=== PATIENT | male | born 1960 | race Caucasian/White ===

== ENCOUNTER → 2019-11-05 14:45 | Outpatient (CLI) | payer BC, SELFPAY ==
--- NOTE | ~2019-11-05 | CT_ITS ---
EXAMINATION: CT sinus wo con DATE: 11/05/2019 15:00 INDICATION: Chronic sinusitis. TECHNIQUE: Computed tomography (CT) of the paranasal sinuses was performed without intravenous contra st. The dose-length product was 283.55 mGy-cm. Automated exposure control and iterative reconstructio n technique were employed. COMPARISON: None FINDINGS: There are changes of surgical resection of the inferior turbinates. The ostiomeatal units a re patent. Minimal mucosal thickening adjacent to the right ostiomeatal unit. Small mucous retention cyst left maxillary sinus. No air-fluid levels. No significant mucoperiosteal reaction. Leftward nasa l septal deviation. Mastoid air cells are pneumatized. IMPRESSION: 1. Mild maxillary sinus disease. Reviewed, dictated and finalized at location A. ER MACHINE
== END ==
PROVIDERS: PCP Family Medicine; Visit Provider Otolaryngology
DX: J32.0 Chronic maxillary sinusitis (principal)
CPT/HCPCS: 70486

== ENCOUNTER 2020-12-10 12:24 | Outpatient (CLI) | payer BC, SELFPAY | END 2020-12-10 12:25 | disposition home or self-care (01) | LOC: ANHAUDIO 12:25 | PROVIDERS: PCP Physician Assistant; Referring Provider Otolaryngology; Visit Provider Otolaryngology | DX: H93.12 Tinnitus, left ear (principal) | CPT/HCPCS: 92557; 92567 ==

== ENCOUNTER 2021-12-28 00:19 | Day surgery (SDC) | payer BC, SELFPAY ==
[2021-12-15 15:01] VITALS: BMI 29.3
--- NOTE | 2021-12-15 15:15 | PC.NURSE ---
Report to the Outpatient Waiting Room, entrance under the green pavilion located off [facility], at time 0630 on date 12/28/21. OR Time: 0830. - You and your visitor will be asked a series of questions to screen for COVID 19 for your protection. - A mask is required within the hospital. One visitor will be allowed to accompany the patient into the hospital. Patients visitor will be instructed to remain with patient at all times or leave the building. We will allow the visitor to come back to the postoperative area when patient is ready. Preoperative COVID Testing Requirements: No COVID Test needed if: (proof is required; if not received patient will have Rapid Test prior to entry) - Patient has received COVID Vaccine at least 14 days prior to procedure date or - Patient has positive COVID test result within last 90 days of surgery date. COVID Test needed if above criteria is not met Patients may have clear liquids (water, carbonated beverages, clear teas, apple juice) until 3 hours prior to surgery with a maximum of 20 ounces. - No food from midnight until time of surgery Take the following medications with a SIP of water the morning of surgery: METOPROLOL Medications to discontinue per physician: VITAMINS/SUPPLEMENTS Date to take last dose: 12/24/21 Please no make-up, nail gambian, hairspray, perfume, deodorant, or body powder the day of surgery. No jewelry (including any body piercings) or valuables the day of surgery, leave them at home. Please take a shower or bath the night before, or the morning of, surgery with an antibacterial soap. Wear comfortable, loose fitting clothing. HIBICLENS SHOWER - Jewelry must be removed prior to entering the operating room. Rings and piercings that are not removed may be cut off. - The hospital will not accept responsibility for valuables. - Please leave all valuables, including medications, at home the day of surgery. If you are going home after surgery, a licensed entry driver operator must drive you home. - NO public transportation without another adult. - We recommend that an adult stay with you for 24 hours following discharge. - We also recommend that you do not drive, make important decision, drink alcoholic beverages, or take any drugs that were not prescribed by your health care provider for at least 24 hours after your discharge time. Follow any additional instructions given to you from your surgeon. Telephone instructions given to MAGED CHERY and asked if any additional questions and then verbalized understanding. Patient advised to call surgeon office or pre surgery nurse liaison [phone] if any additional questions.
[2021-12-28] MEDS: ACETAMINOPHEN 500 MG TABLET 1000 MG PO (06:43)
[2021-12-28 06:47] VITALS: BP 148/83; PULSE 77; RESP 16; TEMP 36.6; O2SAT 99
--- NOTE | 2021-12-28 07:03 | WPDANESEPPF ---
Anes - Initial Pre Proc Eval Procedure: Operation Date: 12/28/21 08:30 Proposed Procedures p Repair Periumbilical Incisional Hernia with Mesh - Bradley Lopez MD Date/Time: 12/28/21 07:03 Surgeon: Bradley Lopez MD Pre Op Diagnosis: Incisional Hernia Patient Data Age: 60 Gender: M Height: 1.91 m Weight: 108 kg Allergies Allergy/AdvReac Type Severity Reaction Status Date / Time codeine Allergy Unknown Headache Verified 12/28/21 06:39 diclofenac AdvReac Severe Swelling Verified 12/28/21 06:39 strawberry AdvReac Severe Dyspnea / Verified 12/28/21 06:39 SOB NSAIDS (Non-Steroidal AdvReac Swelling Verified 12/28/21 06:39 Anti-Inflamma Home Medications Medication Instructions Recorded Confirmed Type multivitamin 1 tablet PO DAILY 08/15/19 12/28/21 History testosterone cypionate 200 mg/mL 200 mg IM MONTHLY #3 ml 08/02/21 12/28/21 Rx intramuscular oil metoprolol succinate 50 mg 75 mg PO DAILY #135 tablet 11/27/21 12/28/21 Rx tablet,extended release 24 hr Patient hx anesthesia problems: none Family hx anesthesia problems: none Results Review: All pre-operative results and documents have been reviewed as part of the pre-operative evaluation. [facility] Past Medical History Medical History (Updated 12/12/21 @ 11:17 by Lindsey Shipley) Dyspnea on exertion Hypertension Hypogonadism Hypogonadism in male SVT (supraventricular tachycardia) Surgical History Surgical History H/O hernia repair History of carpal tunnel release Family History Family History Mother Family history of congestive heart failure Diabetes mellitus Hypertension Other Family history of cardiovascular disease Social History Social History Smoking packs per day: 2 Smoking cigarettes per day: 40.0 Years smoked: 25 Smoking pack-years: 50.00 Smoking status: Former smoker Tobacco type: cigarettes Second hand tobacco smoke exposure: No Smoking end date: 10/08/01 Alcohol intake: current Drinks per week: 8 Substance use: never Substance use type: does not use Living arrangements: alone Gender identity (if verbalized by the patient): Male Spiritual care concerns: No Anes - Eval Final PreProcedure Day of Procedure 12/28/21 07:03 Patient weight: overweight Heart: regular rate and rhythm Lungs: clear to auscultation and normal air movement Airway: Mallampati scale class 1 Neurological: alert and oriented Last oral intake: >/= 8 hours ASA classification: III Emergent: no Anesthetic plan: proceed Anesthesia type and monitoring: general GIVS and standard monitoring Results Review: All pre-operative results and documents have been reviewed as part of the pre-operative evaluation. Informed Consent: The patient's anesthetic plan and its attendant risks and benefits were discussed with the patient/family/POA. Questions were solicited and answers provided to the satisfaction of the patient/family/POA.
[2021-12-28] MEDS: LACTATED RINGERS 1,000 ML 30 ML IV CONT (07:27)
--- NOTE | 2021-12-28 08:15 | WPDHPUPDATE1 ---
History and Physical Update Update Date/Time: 12/28/21 08:15 History and Physical has been reviewed, including an updated exam of the patient. There are NO changes in the patient's condition. Risks, benefits, and alternatives have been discussed and questions answered. Patient agrees to proceed with procedure.
[2021-12-28] MEDS: ceFAZolin 2 GM/D5W 50 ML 2 GM/50 ML BAG IVPB (08:36)
[2021-12-28] MEDS: BUPIVACAINE/EPINEPHRINE 0.25% 10 ML VIAL 30 ML INFILTRATE (09:07)
[2021-12-28 09:23] VITALS: BP 109/60; PULSE 85; RESP 14; TEMP 36.9; O2SAT 97
--- NOTE | 2021-12-28 09:32 | W.PM.PROC2 ---
Procedure Note - Detailed Date of Procedure 12/28/21 Pre-op Diagnosis Incisional Hernia Post-op Diagnosis Same Procedure Performed Repair incisional hernia with 4.[address] underlay hernia mesh Surgeon Bradley Lopez MD Anesthesia MAC and Local (0.25% Marcaine with epinephrine) Indications Patient is a 60-year-old man who developed a bulge just above the umbilicus. He had had a previous laparoscopic inguinal hernia repair in this was a trocar site. He is taken to surgery now for repair of this incisional hernia. Findings Showed a small 1 cm defect. Description of Procedure The patient was taken to surgery and placed in a supine position. IV sedation was administered. The abdomen is prepped and draped. The proposed incision was marked on the skin directly overlying the previous incision scar. Local was infiltrated in the area of the anticipated incision and in the subcutaneous. Incision was made dissection was carried down to the hernia. I dissected the hernia sac from the subcutaneous and from the overlying umbilical skin. We dissected circumferentially around the herniated contents down to the fascia. I then infiltrated additional local into the fascia all around the neck of the hernia. Local was also infiltrated into the neck of the hernia. I then excised the hernia sac and the herniated contents with the cautery. This material was discarded. I was able place a finger in the defect. No other hernias were noted. I placed a curved clamp in the defect and checked for any other potential defects in the area. None were seen. I then infiltrated additional local all around the area of the hernia defect. The 4.2 cm Ventralex patch was chosen and placed in the defect. It was positioned symmetrically. Cranial and caudal transfascial sutures of 0 Ethibond were then placed. Each of these was placed in such a fashion as it would advance the edges of the hernia defect towards 1 another. Once the sutures were tied, they did have the desired effect. I then closed the hernia defect with [id number] mattress suture of 0 Ethibond. This also incorporated a bit of the mesh. The repair looked good. The skin was sutured to the fascia with interrupted 3-0 Vicryl suture. Incision was closed with interrupted 3-0 and 4-0 Vicryl subcuticular suture. Finally a running 4-0 Monocryl skin suture was placed in subcuticular fashion. The wound was dressed with Exofin surgical adhesive. The patient was awakened and taken to recovery in good condition. Sponge and needle counts were correct x2. Implants 4.[address] hernia patch Estimated Blood Loss -5 Drains No Packing No Pathology None sent Complications No immediate complications Condition Stable Disposition Same day
[2021-12-28 09:53] VITALS: BP 140/82; PULSE 63; RESP 14; O2SAT 99
[2021-12-28 10:00] VITALS: BP 152/91; PULSE 63; RESP 14; O2SAT 99
--- NOTE | 2021-12-28 10:21 | SUR.PHASEII ---
pt said he spoke with dr schmitt about Percocet and his allergy and said it should be ok for him to take if needed.
== END 2021-12-28 10:22 | disposition home or self-care (01) ==
PROVIDERS: PCP Family Medicine; Visit Provider Surgery
PROC: (CPT 49560; principal; 2021-12-28 08:30)
DX: K43.2 Incisional hernia without obstruction or gangrene (principal); I10 Essential (primary) hypertension; I47.1 Supraventricular tachycardia; E29.1 Testicular hypofunction; Z79.890 Hormone replacement therapy; Z87.891 Personal history of nicotine dependence
CPT/HCPCS: 49560; 49568; A9270; C1781; J0690; J2250; J2704; J3010; J7120

== ENCOUNTER 2023-05-09 13:11 | Emergency (ER) | payer BC, SELFPAY ==
--- NOTE | ~2023-05-09 | XR_ITS ---
EXAMINATION: XR knee RT min 4V DATE: 05/09/2023 13:38 INDICATION: Right knee pain. TECHNIQUE: 4 views of right knee were obtained. COMPARISON: None. FINDINGS: Bone alignment is normal. No fracture. There is moderate osteoarthritis of medial compartme nt and mild osteoarthritis of lateral and patellofemoral compartments. No knee joint effusion. IMPRESSION: 1. Moderate right knee osteoarthritis. Reviewed, dictated and finalized at location B.
--- NOTE | 2023-05-09 13:13 | ED.EXTPRO ---
HPI - Extremity Problem General Chief complaint: Extremity Problem,Nontraumatic Stated complaint: Rt Knee Pain Time Seen by Provider: 05/09/23 13:13 Source: patient Mode of arrival: ambulatory Limitations: no limitations History of Present Illness HPI Narrative: Roc is a 62-year-old male patient presenting to the clinic today with complaints of right knee pain time 2 days. 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 Is having pain to the right medial and posterior knee. No known injury. Pain is worse with full flexion of the knee. Related Data Home Medications Medication Instructions Recorded Confirmed multivitamin (Daily Multi-Vitamin 1 tablet PO DAILY 08/15/19 05/09/23 tablet) Allergies Allergy/AdvReac Type Severity Reaction Status Date / Time strawberry AdvReac Severe Dyspnea / Verified 05/09/23 13:12 SOB codeine AdvReac Mild Headache Verified 05/09/23 13:12 diclofenac AdvReac Mild Swelling Verified 05/09/23 13:12 NSAIDS (Non-Steroidal AdvReac Mild Swelling Verified 05/09/23 13:12 Anti-Inflamma Review of Systems Review of Systems: Pertinent positives per HPI. Patient denies any fever, chills, rash, headache, visual changes, dizziness, cough, runny nose, sore throat, shortness of breath, chest pain, palpitations, nausea, vomiting, diarrhea, constipation, abdominal pain, or any urinary issues. [facility] Past Medical History Medical History Dyspnea on exertion Hypertension Hypogonadism Hypogonadism in male Normal cardiac stress test 2009 Surgical History Surgical History H/O hernia repair History of carpal tunnel release History of incisional hernia repair SHIMON-UMB INCISIONAL HERNIA REPAIR W MESH 12/28/21 Family History Family History Mother Family history of congestive heart failure Diabetes mellitus Hypertension Other Family history of cardiovascular disease Social History Social History Smoking packs per day: 2 Smoking cigarettes per day: 40.0 Years smoked: 25 Smoking pack-years: 50.00 Smoking status: Former smoker Tobacco type: cigarettes Second hand tobacco smoke exposure: No Smoking end date: 10/08/01 Alcohol intake: current Drinks per week: 8 Substance use: never Substance use type: does not use Living arrangements: alone Occupation/Education: occupation Gender identity (if verbalized by the patient): Male Spiritual care concerns: No Comments At the time of my signature, I reviewed and agree with the nursing past medical, surgical, social, and family history. There is no relevant family history pertinent to the patient complaint. Exam Narrative: General: Well-developed, well nourished, in no apparent distress Head: Normocephalic, atraumatic. Cardio: Regular rate and rhythm, s1 and s2 normal, no murmur appreciated. Resp: Clear to auscultation bilaterally, no rhonchi, rales, wheezing or rubs. Musculoskeletal: No deformity, no swelling or bruising noted, no palpable mass, tender to palpation over the MCL and to the posterior media knee, grossly normal range of motion, muscle strength strong and equal, peripheral pulse strong, no edema, no cyanosis, normal gait and station Course Course Emergency Course: Portions of this record may have been created with voice recognition software. Level of Care: Express Care Visit Vital Signs Vital signs: Vital signs reviewed MDM - Extremity (Nontraumatic) MDM Narrative Medical decision making narrative: At the time of visit patient is resting comfortably on exam table. X-ray was performed of the right knee and shows moderate osteoarthritis. I suspect patient has knee strain with osteoarthritis. Recommend wearing a h
[2023-05-09 13:18] VITALS: BP 131/88; PULSE 66; RESP 18; TEMP 36.4; O2SAT 100
== END 2023-05-09 13:49 | disposition home or self-care (01) ==
PROVIDERS: Emergency Provider Nurse Practitioner Family; PCP Family Medicine
DX: S86.911A Strain of unspecified muscle(s) and tendon(s) at lower leg level, right leg, initial encounter (principal); X58.XXXA Exposure to other specified factors, initial encounter; M17.11 Unilateral primary osteoarthritis, right knee; I10 Essential (primary) hypertension; Z87.891 Personal history of nicotine dependence
CPT/HCPCS: 73564; 99213; G0463

== ENCOUNTER 2024-01-11 10:15 | Outpatient (CLI) | payer BC, SELFPAY ==
--- NOTE | ~2024-01-11 | US_ITS ---
EXAMINATION: US soft tissue head and neck DATE: 01/11/2024 10:42 INDICATION: Localized swelling, mass and lump, trunk. TECHNIQUE: Multiple grayscale and Doppler ultrasound images of the head and neck were obtained. COMPARISON: None FINDINGS: There are normal lymph nodes in the neck bilaterally. IMPRESSION: 1. No abnormal neck mass or lymphadenopathy. Reviewed, dictated and finalized at location A.
== END 2024-01-11 10:16 ==
PROVIDERS: PCP Family Medicine; Visit Provider Family Medicine
DX: R22.2 Localized swelling, mass and lump, trunk (principal)
CPT/HCPCS: 76536

== ENCOUNTER 2024-04-07 07:43 | Emergency (ER) | payer BC, SELFPAY ==
--- NOTE | ~2024-04-07 | XR_ITS ---
XR knee LT 3V Ordering provider: Alex Kim MD History: . Knee pain, HEARD POP TO LT KNEE . Comparison: October 26, 2010 FINDINGS: BONES: No acute fracture or dislocation. JOINT SPACES: Normal. SOFT TISSUES: Normal. IMPRESSION: No acute osseous abnormality left knee. Reviewed, dictated and finalized at location A.
[2024-04-07 07:44] VITALS: BP 160/88; PULSE 97; RESP 14; TEMP 37.1; O2SAT 99
--- NOTE | 2024-04-07 09:40 | ED.GENADULT ---
HPI - General Adult General Chief complaint: Extremity Injury, Lower Stated complaint: L knee Time Seen by Provider: 04/07/24 08:04 History of Present Illness HPI narrative: This is a 63-year-old male with history of chronic knee pain presenting with knee pain. Patient says that he got up this morning and felt a pop in his left knee. He then had some pain. He came to the emergency department for evaluation. The patient has been able ambulate and bear weight. He has been seen multiple times at different urgent cares and typically gets p.o. steroids with some improvement. He does have an appointment with an learning operations specialist but has not been able to see them yet. No other injuries. Related Data Home Medications Medication Instructions Recorded Confirmed multivitamin (Daily Multi-Vitamin 1 tablet PO DAILY 08/15/19 12/25/23 tablet) Allergies Allergy/AdvReac Type Severity Reaction Status Date / Time strawberry AdvReac Severe Dyspnea / Verified 04/07/24 08:06 SOB codeine AdvReac Mild Headache Verified 04/07/24 08:06 diclofenac AdvReac Mild Swelling Verified 04/07/24 08:06 NSAIDS (Non-Steroidal AdvReac Mild Swelling Verified 04/07/24 08:06 Anti-Inflamma [facility] Past Medical History Medical History Dyspnea on exertion Hypertension Hypogonadism in male Normal cardiac stress test 2009 Surgical History Surgical History H/O hernia repair History of carpal tunnel release History of incisional hernia repair SHIMON-UMB INCISIONAL HERNIA REPAIR W MESH 12/28/21 Family History Family History Mother Family history of congestive heart failure Diabetes mellitus Hypertension Other Family history of cardiovascular disease Social History Social History Smoking packs per day: 2 Smoking cigarettes per day: 40.0 Years smoked: 25 Smoking pack-years: 50.00 Smoking status: Former smoker Tobacco type: cigarettes Second hand tobacco smoke exposure: No Smoking end date: 10/08/01 Alcohol intake: current Drinks per week: 8 Substance use: never Substance use type: does not use Living arrangements: alone Occupation/Education: occupation Gender identity (if verbalized by the patient): Male Spiritual care concerns: No Exam Narrative: APPEARANCE: No apparent distress. Head: atraumatic. EYES: EOMI, NOSE: Atraumatic NECK: Trachea midline RESPIRATORY: No increased rate of breathing CARDIOVASCULAR: RRR, ABDOMINAL: Non-distended MUSCULOSKELETAl: Focal exam of the left knee revealed no traumatic injuries. MildPain with active and passive range motion. pain increased with varus and valgus stress. No appreciate joint laxity, neurovasculary intact NEURO: Alert. Moving 4/4 extremities SKIN:: Warm, dry. Normal color PSYCHIATRIC: Normal affect Course Vital Signs Vital signs: Vital Signs Temperature 98.8 F 04/07/24 07:44 Pulse Rate 97 04/07/24 07:44 Respiratory Rate 14 04/07/24 07:44 Blood Pressure 160/88 H 04/07/24 07:44 Pulse Oximetry 99 04/07/24 07:44 Oxygen Delivery Room Air 04/07/24 07:44 Temperature 98.8 F 04/07/24 07:44 Pulse Rate 97 04/07/24 07:44 Respiratory Rate 14 04/07/24 07:44 Blood Pressure 160/88 H 04/07/24 07:44 Pulse Oximetry 99 04/07/24 07:44 Oxygen Delivery Room Air 04/07/24 07:44 Medical Decision Making [facility] Narrative Medical decision making narrative: -Course: 63-year-old male presenting knee pain. X-rays negative for bony injury. Patient's pain is controlled he is able to ambulate. Patient will be discharged with pain medication and instructed to follow-up with his orthopedic surgeon for further evaluation. -DDX includes but is not limited
[2024-04-07] MEDS: ACETAMINOPHEN 500 MG TABLET 1000 MG PO (10:10)
[2024-04-07 10:15] VITALS: BP 151/96; PULSE 66; RESP 18; O2SAT 100
== END 2024-04-07 10:17 | disposition home or self-care (01) ==
PROVIDERS: Emergency Provider Emergency Medicine; PCP Family Medicine
DX: M25.562 Pain in left knee (principal); G89.29 Other chronic pain; I10 Essential (primary) hypertension; Z87.891 Personal history of nicotine dependence
CPT/HCPCS: 73562; 99283; A9270